=== PATIENT | female | born 1925 | race Caucasian/White ===

== ENCOUNTER 2017-05-27 11:14 | Emergency (ER) | payer OTHER ==
[~2017-05-27] VITALS: Ht 152.4 cm; Wt 56.7 kg
[2017-05-27] MEDS ORDERED: DICLOFENAC SODI50 MG PO (15:29)
== END 2017-05-27 16:10 | disposition home or self-care (01) ==
LOC: ER 11:14
DX: M62.838 Other muscle spasm (principal)